=== PATIENT | female | born 2005 ===

== ENCOUNTER 2025-05-27 07:00 | Day surgery (SDC) | payer OTHER ==
[2025-05-20 09:48] VITALS: BP 113/76
[~2025-05-27] VITALS: Ht 149.9 cm; Wt 54.4 kg
[2025-05-27] MEDS ORDERED: CEFAZOLIN SODIUM 1,000 MG VIAL ONE (08:45)
[2025-05-27] MEDS ORDERED: POVIDONE-IODINE 118 ML BOTT TOP ONE (09:00)
[2025-05-27] MEDS ORDERED: IBU600 MG PO (09:58)
[2025-05-27] MEDS ORDERED: NEURONTIN300 MG PO (09:59)
[2025-05-27] MEDS ORDERED: MINOCIN100 M1 IV (10:00)
== END 2025-05-27 14:10 | disposition home or self-care (01) ==
LOC: CIR.AMB 07:00
PROVIDERS: ATTEND Obstetrics & Gynecology Gynecology
DX: N76.4 Abscess of vulva (principal)